=== PATIENT | male | born 1975 | race Caucasian/White ===

== ENCOUNTER 2021-10-30 01:51 | Inpatient (IN) | payer SELFPAY ==
[2021-10-30 02:26] VITALS: BMI 29.9
[2021-10-30] MEDS ORDERED: ACETAMINOPHEN 1000 MG/100 ML BAG IVPB ONE (02:35)
[2021-10-30] MEDS ORDERED: DEXAMETHASONE SOD PHOSPHATE 10 MG/1 ML VIAL IVPUSH ONE (02:41)
[2021-10-30] MEDS ORDERED: guaiFENesin 200 MG/10 ML 10 ML UNIT-DOSE CUPS PO ONE (02:45)
[2021-10-30] MEDS ORDERED: ACETAMINOPHEN INJECTION 100 ML IVPB ONE (02:56)
[2021-10-30] MEDS ORDERED: guaiFENesin 200 MG/10 ML 10 ML UNIT-DOSE CUPS ONE (02:57)
[2021-10-30] MEDS ORDERED: DEXAMETHASONE SOD PHOSPHATE 10 MG/1 ML VIAL ONE (02:57)
[2021-10-30] MEDS ORDERED: SODIUM CHLORIDE 0.9% 500 ML INFUS.BAG IV ONE ×2 (03:06→05:59)
[2021-10-30 03:28] LABS: BASO % 1.3 % (0-2.0); EOS % 0.1 % (0-4.5); HEMATOCRIT 43.6 % (35.4-49); HEMOGLOBIN 14.9 GM/dL (11.7-16.9); LYMPH % 22.5 % (8-40); MCH 28.3 pg (25.7-33.7); MCHC 34.3 g/dl (32.0-35.9); MEAN CELL VOLUME 82.6 fl (80-96); MEAN PLT VOLUME 8.1 fl (7.5-11.1); MONO % 6.7 % (3.8-10.2); NEUT % 69.4 % (42.8-82.8); PLATELET COUNT 217 10^3/uL (134-434); RBC 5.28 M/mm3 (4.00-5.60)
[2021-10-30 03:31] LABS: VENOUS BASE EXCESS -1.3 mmol/L (-2-2); VENOUS O2 SATURATION 93.9 % (70-80); VENOUS PCO2 32.1 mmHg (38-52); VENOUS PH 7.447 (7.310-7.410)
[2021-10-30 03:35] LABS: CHLORIDE 98 mmol/L (98-107); SODIUM 131 mmol/L (136-145)
[2021-10-30 03:37] LABS: ANION GAP 9 MMOL/L (8-16); BLOOD UREA NITROGEN 8.2 mg/dL (7-18); CALCIUM 8.4 mg/dL (8.5-10.1); CO2 25 mmol/L (21-32); GLUCOSE,RANDOM 351 mg/dL (74-106)
[2021-10-30 03:41] LABS: INR 1.29 (0.83-1.09); PROTHROMBIN TIME (PATIENT) 14.5 SEC (9.7-13.0)
[2021-10-30 03:41] LABS: BILIRUBIN,DIRECT 0.1 mg/dL (0.0-0.2); SGOT/AST 67 U/L (15-37); SGPT/ALT 66 U/L (13-61)
[2021-10-30 03:43] LABS: ALK PHOS 107 U/L (45-117); BILIRUBIN,TOTAL 0.6 mg/dL (0.2-1); TOT PROT 7.2 g/dl (6.4-8.2)
[2021-10-30 03:43] LABS: ACTIVATED PTT 32.4 SECONDS (25.2-36.5)
[2021-10-30 04:05] LABS: LACTIC ACID 2.1 mmol/L (0.4-2.0)
[2021-10-30 05:40] LABS: ALBUMIN 3.4 g/dl (3.4-5.0)
[2021-10-30] MEDS ORDERED: CHOLECALCIFEROL (VIT D3) 1,000 UNIT (25 MCG) TABLET PO ONE (06:29)
[2021-10-30] MEDS ORDERED: BENZOCAINE/MENTH/CETYLPYRD CL 1 EACH LOZENGE MM PRN (06:31)
[2021-10-30] MEDS ORDERED: guaiFENesin/D-METHORPHAN HB 10 ML UNIT-DOSE CUPS PO PRN (06:31)
[2021-10-30] MEDS ORDERED: CHOLECALCIFEROL (VIT D3) 1,000 UNIT (25 MCG) TABLET ONE (07:22)
[2021-10-30] MEDS: INSULIN SLIDING SCALE (NOVOLOG) 1 VIAL SQ SCH ×4 (07:24→21:55)
[2021-10-30] MEDS ORDERED: ZINC SULFATE 220 MG CAPSULE (FP) ONE (09:14)
[2021-10-30] MEDS ORDERED: ENOXAPARIN NA (PORCINE) 40 MG/0.4 ML DISP.SYRIN SQ ONE (09:15)
[2021-10-30] MEDS: ZINC SULFATE 220 MG CAPSULE (FP) PO SCH (09:19)
[2021-10-30] MEDS: ENOXAPARIN NA (PORCINE) 40 MG/0.4 ML DISP.SYRIN SQ SCH (09:19)
[2021-10-30] MEDS: ASCORBIC ACID 250 MG TABLET (FP) PO SCH (09:19)
[2021-10-30 12:11] LABS: PH,URINE 5.5 (5.0-8.0); URINE APPEARANCE CLEAR; URINE BILIRUBIN NEGATIVE (NEGATIVE); URINE COLOR YELLOW; URINE GLUCOSE (UA) 3+ (NEGATIVE); URINE KETONE 3+ (NEGATIVE); URINE LEUK ESTERASE NEGATIVE (NEGATIVE); URINE NITRITE NEGATIVE (NEGATIVE); URINE PROTEIN TRACE (NEGATIVE); URINE UROBILINOGEN 0.2 mg/dL (0.2-1.0)
[2021-10-30 12:44] LABS: LDH 538 U/L (87-246)
[2021-10-30] MEDS ORDERED: guaiFENesin/CODEINE 10 ML UNIT-DOSE CUPS PO SCH (14:30)
[2021-10-30] MEDS ORDERED: ALBUTEROL SO4 HFA INHALER IH ONE (17:51)
[2021-10-30] MEDS: ALBUTEROL SO4 HFA INHALER IH SCH ×2 (17:52→21:47)
[2021-10-30] MEDS: BUDESONIDE/FORMETEROL FUMARATE 160/4.5 mcg INHALER IH SCH (21:47)
[2021-10-30] MEDS: guaiFENesin/CODEINE 5 ML UNIT-DOSE CUPS PO SCH (21:47)
[2021-10-31] MEDS: guaiFENesin/CODEINE 5 ML UNIT-DOSE CUPS PO SCH ×3 (06:02→22:26)
[2021-10-31] MEDS: INSULIN SLIDING SCALE (NOVOLOG) 1 VIAL SQ SCH ×4 (06:02→22:25)
[2021-10-31] MEDS: ALBUTEROL SO4 HFA INHALER IH SCH ×4 (09:41→20:30)
[2021-10-31] MEDS: BUDESONIDE/FORMETEROL FUMARATE 160/4.5 mcg INHALER IH SCH ×2 (09:42→22:26)
[2021-10-31] MEDS: ENOXAPARIN NA (PORCINE) 40 MG/0.4 ML DISP.SYRIN SQ SCH (09:43)
[2021-10-31] MEDS: DEXAMETHASONE SOD PHOSPHATE 4 MG/1 ML VIAL IVPUSH SCH (09:43)
[2021-10-31] MEDS: ASCORBIC ACID 250 MG TABLET (FP) PO SCH (09:43)
[2021-10-31] MEDS: ZINC SULFATE 220 MG CAPSULE (FP) PO SCH (09:44)
[2021-10-31 14:02] LABS: EOS % 0.1 % (0-4.5); HEMOGLOBIN 14.4 GM/dL (11.7-16.9); LYMPH % 7.5 % (8-40); MCH 28.2 pg (25.7-33.7); MCHC 33.5 g/dl (32.0-35.9); MEAN CELL VOLUME 84.1 fl (80-96); MEAN PLT VOLUME 7.9 fl (7.5-11.1); MONO % 3.7 % (3.8-10.2); NEUT % 87.7 % (42.8-82.8); PLATELET COUNT 279 10^3/uL (134-434); RBC 5.12 M/mm3 (4.00-5.60); WHITE BLOOD COUNT 8.2 K/mm3 (4.0-10.0)
[2021-10-31 14:08] LABS: CALCIUM 8.4 mg/dL (8.5-10.1)
[2021-10-31 14:10] LABS: ALBUMIN 3.4 g/dl (3.4-5.0); BLOOD UREA NITROGEN 16.1 mg/dL (7-18); MAGNESIUM 2.7 mg/dL (1.8-2.4)
[2021-10-31 14:14] LABS: BILIRUBIN,TOTAL 0.4 mg/dL (0.2-1); TOT PROT 7.4 g/dl (6.4-8.2)
[2021-11-01] MEDS: INSULIN SLIDING SCALE (NOVOLOG) 1 VIAL SQ SCH ×2 (06:44→11:53)
[2021-11-01] MEDS: guaiFENesin/CODEINE 5 ML UNIT-DOSE CUPS PO SCH (06:45)
[2021-11-01 08:08] LABS: BASO % 0.4 % (0-2.0); HEMATOCRIT 41.7 % (35.4-49); HEMOGLOBIN 13.7 GM/dL (11.7-16.9); LYMPH % 20.2 % (8-40); MCH 27.6 pg (25.7-33.7); MCHC 32.8 g/dl (32.0-35.9); MEAN CELL VOLUME 84.1 fl (80-96); MEAN PLT VOLUME 7.8 fl (7.5-11.1); MONO % 9.2 % (3.8-10.2); NEUT % 70.2 % (42.8-82.8); PLATELET COUNT 305 10^3/uL (134-434); RBC 4.95 M/mm3 (4.00-5.60); RDW 12.8 % (11.9-15.9); WHITE BLOOD COUNT 5.6 K/mm3 (4.0-10.0)
[2021-11-01 08:25] LABS: BLOOD UREA NITROGEN 15.8 mg/dL (7-18); CALCIUM 8.6 mg/dL (8.5-10.1); MAGNESIUM 2.7 mg/dL (1.8-2.4)
[2021-11-01 08:29] LABS: CREATININE 0.8 mg/dL (0.55-1.3)
[2021-11-01 08:30] LABS: BILIRUBIN,TOTAL 0.4 mg/dL (0.2-1); TOT PROT 6.9 g/dl (6.4-8.2)
[2021-11-01] MEDS: ALBUTEROL SO4 HFA INHALER IH SCH ×2 (08:30→13:20)
[2021-11-01] MEDS ORDERED: PT OWN MED DRAWER 7, Y5N ONE (09:27)
[2021-11-01] MEDS: DEXAMETHASONE SOD PHOSPHATE 4 MG/1 ML VIAL IVPUSH SCH (10:29)
[2021-11-01] MEDS: ZINC SULFATE 220 MG CAPSULE (FP) PO SCH (10:30)
[2021-11-01] MEDS: BUDESONIDE/FORMETEROL FUMARATE 160/4.5 mcg INHALER IH SCH (10:31)
[2021-11-01] MEDS: ENOXAPARIN NA (PORCINE) 40 MG/0.4 ML DISP.SYRIN SQ SCH (10:31)
[2021-11-01] MEDS: ASCORBIC ACID 250 MG TABLET (FP) PO SCH (10:31)
[2021-11-01 14:51] VITALS: BP 131/84; PULSE 98; TEMP 98.7
[2021-11-02] MEDS ORDERED: DEXAMETHASONE 4 MG TABLET (FP) PO SCH (10:00)
== END 2021-11-01 16:28 | disposition home or self-care (01) | DRG 137 ==
LOC: JER 01:51 → JERBED 04:03 → J4S 18:34
PROVIDERS: ADMIT Hospitalist; ATTEND Nurse Practitioner Acute Care
PROC: 3E0333Z Introduction of Anti-inflammatory into Peripheral Vein, Percutaneous Approach (ICD-10-PCS; principal; 2021-10-30)
DX: U07.1 COVID-19 (principal); J12.82 Pneumonia due to coronavirus disease 2019; E87.1 Hypo-osmolality and hyponatremia; E11.65 Type 2 diabetes mellitus with hyperglycemia; R74.01 Elevation of levels of liver transaminase levels; J96.01 Acute respiratory failure with hypoxia; E87.2 Acidosis; R94.5 Abnormal results of liver function studies; R05.9 Cough, unspecified
CPT/HCPCS: 36415; 71045-TC-FY; 80053; 81003; 82248; 82550; 82728; 82803; 82962; 83036; 83605; 83615; 83735; 84484; 85025; 85379; 85610; 85730; 86140; 86769; 87040; 87804; 93005; 93010; 94761; 99285-25; C9803; J0131; J1100; U0003; U0005